=== PATIENT | male | born 1945 | race Caucasian/White ===

== ENCOUNTER 2017-11-09 06:45 | Day surgery (SDC) | payer MEDICARE, OTHER ==
--- NOTE | 2017-11-08 17:50 | Pre-Procedure Note/Attestation ---
Pre-Procedure Note/Attestation Complete Prior to Procedure Planned Procedure: right Procedure Narrative: 1. CATARACT EXTRACTION WITH PHACO AND PC IOL IMPLANTATION, RIGHT EYE. 2. LIMBAL RELAXING INCISION, RIGHT EYE 3.MALYUGIN RING INSERTION, RIGHT EYE FOR FLOPPY IRIS SYNDROME. 4.COMPLEX CATARACT , RIGHT EYE Indications for Procedure Pre-Operative Diagnosis: 1. CATARACT ,RIGHT EYE. 2. ASTIGMATISM, RIGHT EYE. 3. FLOPPY IRIS SYNDROME, RIGHT EYE 4. COMPLEX CATARACT , RIGHT EYE. Attestation I attest that I discussed the nature of the procedure; its benefits; risks and complications; and alternatives (and the risks and benefits of such alternatives ), prior to the procedure, with the patient (or the patient's legal customer retention representative). I attest that, if there was a reasonable possibility of needing a blood transfusion, the patient (or the patient's legal customer retention representative) was given the [facility] standardized written summary, pursuant to the Anthony Terri Blood Safety Act ([place] Health and Safety Code # 1645, as amended). I attest that I re-evaluated the patient just prior to the surgery and that there has been no change in the patient's H&P, except as documented below: AKHIL RANGEL Nov 08, 2017 17:50
[2017-11-09] VITALS (10 sets, daily range): BP systolic 95–117; BP diastolic 56–69
[~2017-11-09] VITALS: Ht 167.6 cm; Wt 78.0 kg
[~2017-11-09 06:45] MED LIST: acetaZOLAMIDE 125mg tab ORAL ONE
[2017-11-09] MEDS ORDERED: Lidocaine 1% MPF 10mg/ml 5ml ONE (07:04)
[2017-11-09] MEDS ORDERED: Dexamethasone 4mg/ml vial ONE (07:04)
[2017-11-09] MEDS ORDERED: BSS 500ml btl ONE (07:04)
[2017-11-09] MEDS ORDERED: EPINEPHrine 1mg/1ml Amp ONE (07:05)
[2017-11-09] MEDS ORDERED: Povidone-Iodine 5% opth solution ONE (07:05)
[2017-11-09] MEDS ORDERED: Sodium Hyaluronate 10 mg/ml 0.85ml ONE (07:05)
[2017-11-09] MEDS ORDERED: Carbachol 0.01% Op Soln 1.5ml vial ONE (07:05)
[2017-11-09] MEDS ORDERED: BSS 15ml BTL ONE (07:05)
[2017-11-09] MEDS ORDERED: Akten 3.5% 1ml Btl ONE (07:07)
[2017-11-09] MEDS ORDERED: Phenylephrine 10% Opth Soln 5ml ONE (07:07)
[2017-11-09] MEDS ORDERED: Vigamox Opth Soln 3ml ONE (07:07)
[2017-11-09] MEDS ORDERED: Ketorolac Tromethamine Opth 5ml Soln ONE (07:07)
[2017-11-09] MEDS ORDERED: Tropicamide 1% Opth 15ml Soln ONE (07:08)
[2017-11-09] MEDS: Ketorolac Tromethamine Opth 5ml Soln RIGHT EYE SCH ×3 (07:32→08:01)
[2017-11-09] MEDS: Tropicamide 1% Opth 15ml Soln RIGHT EYE SCH ×3 (07:33→08:01)
[2017-11-09] MEDS: Akten 3.5% 1ml Btl RIGHT EYE SCH ×3 (07:33→08:01)
[2017-11-09] MEDS: Phenylephrine 10% Opth Soln 5ml RIGHT EYE SCH ×3 (07:33→08:01)
[2017-11-09] MEDS: Vigamox Opth Soln 3ml RIGHT EYE SCH ×3 (07:33→08:02)
[2017-11-09] MEDS ORDERED: XANAX1 MG ORAL (07:45)
[2017-11-09] MEDS ORDERED: COUMADIN2 MG ORAL (07:45)
[2017-11-09] MEDS ORDERED: BLOOD PRESSURE PO (07:45)
[2017-11-09] MEDS ORDERED: ASPIR 8181 MG ORAL (07:45)
[2017-11-09] MEDS ORDERED: Propofol 200mg/20ml IV ONE (08:00)
[2017-11-09] MEDS ORDERED: NS Irrig 1000ml ONE (08:00)
[2017-11-09] MEDS ORDERED: Midazolam 2mg/2ml Inj ONE (08:00)
[2017-11-09] MEDS ORDERED: Sterile Water Irrig 1000ml IRRIG ONE (08:00)
[2017-11-09] MEDS ORDERED: LR 1000ml ONE (08:00)
[2017-11-09 08:19] LABS: BASOPHILS % (AUTO) 1.2 % (0.0-2.0); EOSINOPHILS % (AUTO) 9.2 % (0.0-3.0); LYMPHOCYTES % (AUTO) 31.9 % (20.0-45.0); MEAN CORPUSCULAR HEMOGLOBIN 32.7 PG (27.0-31.0); MEAN CORPUSCULAR HGB CONC 33.5 G/DL (32.0-36.0); MEAN CORPUSCULAR VOLUME 97 FL (80-99); MEAN PLATELET VOLUME 9.5 FL (6.5-10.1); MONOCYTES % (AUTO) 9.1 % (1.0-10.0); NEUTROPHILS % (AUTO) 48.7 % (45.0-75.0); PLATELET COUNT 130 K/UL (150-450); RED BLOOD COUNT 3.96 M/UL (4.70-6.10); RED CELL DISTRIBUTION WIDTH 13.5 % (11.6-14.8); WHITE BLOOD COUNT 6.5 K/UL (4.8-10.8)
[2017-11-09 08:33] LABS: ANION GAP 7 mmol/L (5-15); CALCIUM 8.8 MG/DL (8.5-10.1); CARBON DIOXIDE 28 MMOL/L (21-32); CHLORIDE 106 MMOL/L (98-107); CREATININE 1.8 MG/DL (0.55-1.30); POTASSIUM 3.9 MMOL/L (3.5-5.1); SODIUM 141 MMOL/L (136-145)
[2017-11-09] MEDS ORDERED: LR 1000ml 1,000 ML IVLG SCH (09:07)
--- NOTE | 2017-11-09 09:07 | Anethesia Preoperative Eval ---
Anesthesia Pre-op PMH/ROS General Date of Evaluation: Nov 09, 2017 Time of Evaluation: 08:32 Anesthesiologist: Adri ASA Score: ASA 3 Mallampati Score Class I : Soft palate, uvula, fauces, pillars visible Class II: Soft palate, uvula, fauces visible Class III: Soft palate, base of uvula visible Class IV: Only hard plate visible Mallampati Classification: Class III Surgeon: [place] Diagnosis: R eye cataract Surgical Procedure: R eye catarac extraction Anesthesia History: none Social History: smoking - h/o, drug use - opioids Family History: no anesthesia problems Allergies: Coded Allergies: No Known Allergies (Unverified , 11/08/17) Medications: see eMAR Past Medical History Cardiovascular: Reports: HTN, CAD - s/p CABG, 2 stents in and valve replacement , arrhythmia - chronic AF, Denies: SD, valve dz, other Pulmonary: Denies: asthma, COPD, DARINEL, other Gastrointestinal/Genitourinary: Reports: GERD, CRI, Denies: ESRD, other Neurologic/Psychiatric: Reports: depression/anxiety, Denies: dementia, CVA, TIA, other Endocrine: Denies: DM, hypothyroidism, steroids, other HEENT: Reports: cataract (L), cataract (R), Denies: glaucoma, ANVIK (L), ANVIK (R), other Hematology/Immune: Reports: anemia - mild chronic d-s, Denies: DVT, bleeding disorder, other Musculoskeletal/Integumentary: Reports: DJD, Denies: OA, RA, DDD, edema, other PMH Narrative: As above PSxH Narrative: CABG Anesthesia Pre-op Phys. Exam Physician Exam Last Vital Signs Date Time Temp Pulse Resp B/P (MAP) Pulse Ox O2 Delivery O2 Flow Rate FiO2 11/09/17 07:47 97.7 72 20 117/61 97 Room Air Constitutional: NAD Neurologic: CN 2-12 intact Cardiovascular: RRR, no M/R/G, other - IIR Respiratory: CTA, other Gastrointestinal: S/NT/ND Airway Exam Mallampati Score: Class III MO: limited Neck: stiff ROM: limited Teeth: missing Dentures: upper, lower Anesthesia Pre-op A/P Labs Hematology Test 11/09/17 08:05 White Blood Count 6.5 K/UL (4.8-10.8) Red Blood Count 3.96 M/UL (4.70-6.10) L Hemoglobin 12.9 G/DL (14.2-18.0) L Hematocrit 38.6 % (42.0-52.0) L Mean Corpuscular Volume 97 FL (80-99) Mean Corpuscular Hemoglobin 32.7 PG (27.0-31.0) H Mean Corpuscular Hemoglobin Concent 33.5 G/DL (32.0-36.0) Red Cell Distribution Width 13.5 % (11.6-14.8) Platelet Count 130 K/UL (150-450) L Mean Platelet Volume 9.5 FL (6.5-10.1) Neutrophils (%) (Auto) 48.7 % (45.0-75.0) Lymphocytes (%) (Auto) 31.9 % (20.0-45.0) Monocytes (%) (Auto) 9.1 % (1.0-10.0) Eosinophils (%) (Auto) 9.2 % (0.0-3.0) H Basophils (%) (Auto) 1.2 % (0.0-2.0) Chemistry Test 11/09/17 08:05 Sodium Level 141 MMOL/L (136-145) Potassium Level 3.9 MMOL/L (3.5-5.1) Chloride Level 106 MMOL/L (98-107) Carbon Dioxide Level 28 MMOL/L (21-32) Anion Gap 7 mmol/L (5-15) Blood Urea Nitrogen 25 mg/dL (7-18) H Creatinine 1.8 MG/DL (0.55-1.30) H Estimat Glomerular Filtration Rate mL/min (>60) Glucose Level 101 MG/DL (74-106) Calcium Level 8.8 MG/DL (8.5-10.1) Studies Pre-op Studies: EKG - AF Risk Assessment & Plan Assessment: ASA 3 Plan: MAC Status Change Before Surgery: EDUARDO Sylvester M.D. Nov 09, 2017 09:07
[2017-11-09] MEDS ORDERED: DiphenhydrAMINE 50mg/ml Inj IVP PRN (09:15)
[2017-11-09] MEDS ORDERED: fentaNYL 100 mcg/2 mL IV PRN (09:15)
--- NOTE | 2017-11-09 09:31 | Immediate Post-Op Evaluation ---
Immediate Post-Op Evalulation Immediate Post-Op Evalulation Procedure: R eye cataract extraction with IOL Date of Evaluation: Nov 09, 2017 Time of Evaluation: 09:30 IV Fluids: 300 Blood Products: none Estimated Blood Loss: none Urinary Output: none Blood Pressure Systolic: 102 Blood Pressure Diastolic: 69 Pulse Rate: 70 Respiratory Rate: 20 O2 Sat by Pulse Oximetry: 99 Temperature (Fahrenheit): 97.6 Pain Score (1-10): 2 Nausea: No Vomiting: No Complications none Patient Status: awake, patent, none Hydration Status: adequate EDUARDO JOYNER M.D. Nov 09, 2017 09:31
--- NOTE | 2017-11-09 09:37 | Discharge Summary ---
Discharge Summary Discharge Summary Discharge Summary DATE OF ADMISSION: 11/09/2017 DATE OF DISCHARGE: 11/09/2017 REASON FOR HOSPITALIZATION: 1- Cataract, right eye 2- Floppy iris syndrome 3- Complex cataract SURGERY PERFORMED: 1- Cataract extraction, right eye 2- Malyugin ring insertion , right eye 3- Complex cataract removal CONDITION IN THE HOSPITAL:The patient tolerated the surgery without complications. DISCHARGE CONDITION: The patient was stable at discharge. DISCHARGE MEDICATIONS: 1. Vigamox eye drops one drop q.i.d, OD 2. Prednisolone one drop q.i.d, OD 3. Acular drop q4h OD POSTOPERATIVE ORDERS: The patient has to rest at home. No bending, No lifting, No watching Television tonight. POSTOPERATIVE FOLLOW UP: The patient will be followed in my office tomorrow morning at 7 o'clock. AKHIL RANGEL Nov 09, 2017 09:37
--- NOTE | 2017-11-09 09:43 | Brief Operative Note ---
Immediate Post Operative Note Operative Note Chief Complaint: Blurry vision, difficulty driving and reading, right eye Pre-op Diagnosis: 1. CATARACT ,RIGHT EYE. 2. ASTIGMATISM, RIGHT EYE. 3. FLOPPY IRIS SYNDROME, RIGHT EYE 4. COMPLEX CATARACT , RIGHT EYE. Procedure: 1- cataract extraction with phaco and PC IOL implantation, right eye 2-Malyugin ring insertion , right eye 3- Complex cataract removal, right eye Surgeon: Akhil Chowdhury MD Director Data Analytics: None Additional Surgeons: None Anesthesiologist: Dr. Rush Anesthesia: MAC Specimen: none Complications: none Condition: stable Fluids: 500ml Estimated Blood Loss: none Drains: none Implant(s) used?: Yes - Monofocal IOl imoplanted in the right eye without complication AKHIL CHOWDHURY Nov 09, 2017 09:43
--- NOTE | 2017-11-09 15:04 | 48 Hour Post Anesthesia Eval ---
Post Anesthesia Evaluation Procedure: R eye cataract extraction with IOL Date of Evaluation: Nov 09, 2017 Time of Evaluation: 12:56 Blood Pressure Systolic: 116 0: 68 Pulse Rate: 64 Respiratory Rate: 20 Temperature (Fahrenheit): 97.6 O2 Sat by Pulse Oximetry: 98 Airway: patent Nausea: No Vomiting: No Pain Intensity: 2 Hydration Status: adequate Cardiopulmonary Status: stable Mental Status/LOC: patient returned to baseline Follow-up Care/Observations: n/a Post-Anesthesia Complications: none Follow-up care needed: ready to discharge EDUARDO JOYNER M.D. Nov 09, 2017 15:04
--- NOTE | 2017-11-10 05:15 | Operative Note - Dictated ---
DATE OF OPERATION: 11/09/2017 NOTE: "INCOMPLETE DICTATION" FACILITY: [facility]. SURGEON: Jose Chowdhury M.D. FISHING ROD TRIMMER: None. ANESTHESIOLOGIST: Elkin Rush M.D. ANESTHESIA: Monitored anesthesia care (MAC). PREOPERATIVE DIAGNOSES: 1. Cataract, right eye. 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 POSTOPERATIVE DIAGNOSES: 1. Cataract, right eye. 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 SURGERY PERFORMED: 1. Cataract extraction with phacoemulsification and posterior chamber intraocular lens implantation in the right eye. 2. Malyugin ring insertion for treatment of floppy iris syndrome. 3. Complex cataract extraction. 4. Limbal relaxing incision (LRI) to treat astigmatism. INDICATION FOR SURGERY: The patient is a 72-year-old gentleman with a history of hypertension, hypercholesterolemia, and coronary artery disease. The patient is taking Diovan, simvastatin, and medication for coronary artery disease. The patient is a smoker, but does not drink. The patient is not allergic to any medications. The patient is complaining of blurred vision in the right eye. On examination of the right eye, the cornea is clear. Anterior chamber is clean and quiet, but is shallow. Pupillary reflex is normal. There is 4+ nuclear sclerosis and 2+ cortical cataract. Funduscopy shows normal optic disk, normal macula, and periphery retina is within normal limits. To improve his vision in the right eye, the cataract has to be removed and posterior chamber intraocular lens has to be implanted. INFORMED CONSENT: The nature of the surgery, risks, benefits, alternatives, and potential complications were all explained in detail to the patient. The potential complications including, but not limited to bleeding, infection, posterior capsular rupture, lens subluxation, flat anterior chamber, iris prolapse, uveitis, wound leakage, corneal edema, macular edema, endophthalmitis, retinal detachment, loss of vision, and even loss of the eye were all explained in detail to the patient in his language, Farsi. The patient voiced understanding and accepted all the complications. The alternatives including accommodating lens, multifocal lens, toric lens, and conventional cataract surgery with limbal relaxing incision (LRI) for treatment of astigmatism all were explained to the patient in detail, who voiced understanding. The patient elected to have only conventional cataract surgery with limbal relaxing incision for treatment of astigmatism. Then, he signed the consent form, which is in the chart. DESCRIPTION OF SURGERY AND FINDINGS: Following that, the patient was taken to the operation room in a stable condition. Lidocaine gel, Akten 3.5% were applied to the conjunctiva of the right eye. IV sedation was given by the anesthesiologist, Dr. Rush. After adequate anesthesia and sedation had been achieved, the right eye was prepped and draped in the sterile fashion for intraocular surgery. Following that, a speculum was placed in the right eye. Before the patient was taken to the operation room, the cornea was marked at 180 and 90 meridian. In the operation room, using a corneal marker and marking pen, the steep meridian of the cornea was marked. Following that, using a liana knife with 600 blade, two parallel incisions were placed on the steep meridian of the cornea to treat astigmatism. Following that, using a Super Sharp knife, a clear corneal side port was created. A 1% lidocaine without preservative (MPF) was injected into the anterior chamber. Jose Chowdhury M.D. DR: LIZETH JOB#: [id number] CC:
--- NOTE | 2017-11-22 04:00 | Pre-op HX & Phy Repo 2 SIG ---
DATE OF ADMISSION: 11/09/2017 NOTE: POOR AUDIO QUALITY PRESURGICAL INTERNAL MEDICINE HISTORY AND PHYSICAL DATE OF EVALUATION: 11/09/2017 REASON FOR EVALUATION: I was asked by Dr. Jose Chowdhury to see this 72-year-old male, who is going for elective surgery on the right eye. The patient has a cataract in right eye. Please see full description History and Physical by Dr. Jose Chowdhury. The patient was evaluated. Chart was reviewed. PAST MEDICAL HISTORY: Unremarkable for hypertension, chronic atrial fibrillation, renal stones, anxiety, and depression. No history of CVA. No diabetes. No heart attack. No renal failure. No history of GI bleeding or hepatitis. PAST SURGICAL HISTORY: Open heart surgery, valve replacement, and arterial bypass stent. PRESENT MEDICATIONS: Includes Coumadin 2 mg, Xanax, aspirin, and blood pressure medication. ALLERGIES: Allergic to foods, unknown. SOCIAL HISTORY: . Denies alcohol or illicit drug use. FAMILY HISTORY: Not known. REVIEW OF SYSTEMS: Unremarkable for hypertension, chronic atrial fibrillation, renal stones, anxiety, and depression. No history of CVA. No diabetes. No heart attack. No renal failure. No history of GI bleeding or hepatitis. PHYSICAL EXAMINATION: GENERAL: Alert, well-developed, well-nourished male in his 70s. No acute distress. VITAL SIGNS: Blood pressure 117/61, temperature 97.2, pulse 70, respiratory rate 20. SKIN: Dry. Clear. No ulcers. No rashes. LYMPHATIC: Lymph nodes were enlarged. HEENT: Head, normocephalic and atraumatic. Ears, clear. No discharge. Eyes, full description per Dr. Jose Chowdhury. Mouth is clear and moist. No dentures. NECK: No jugular venous distention. Carotids artery +2. Trachea midline. CHEST: No deformity or asymmetry. No rales or rhonchi. HEART: Atrial fibrillation, controlled at the rate of 70. Systolic murmur . ABDOMEN: Soft and benign. No palpable mass. No rebound. EXTREMITIES: No calf tenderness. No edema or varicose veins. GENITOURINARY: No CVA tenderness. No dysuria. NEUROLOGIC: No asymmetry. No tremor. Anxiety and depression. The patient did not eat or drink from last night. LABORATORY AND DIAGNOSTIC DATA: Laboratory work pending. EKG, atrial fibrillation at 73 per minute, right bundle branch block. IMPRESSION: 1. Cataract, right eye. 2. Hypertension, controlled. 3. Chronic atrial fibrillation. 4. Atrial fibrillation. 5. Anxiety and depression. 6. Hyperlipidemia. 7. The patient is on Coumadin. 8. Post open heart surgery for aortic valve replacement. PLAN: Cataract extraction, right eye with intraocular lens implant per Dr. Jose Chowdhury. CONCLUSION: The patient has multiple medical problems including chronic atrial fibrillation, anxiety, depression, and hyperlipidemia. The patient's vital signs are stable. EKG showed chronic atrial fibrillation, controlled beats per minute and right bundle-branch block. The patient's laboratory work is pending. The patient's condition optimized for surgery. Thank you very much, Dr. Chowdhury, for the privilege to participate in the presurgical care of this interesting patient. Toan Wong M.D. DR: ROBERT JOB#: [id number] CC:
== END 2017-11-09 10:50 | disposition home or self-care (01) ==
LOC: SUR 06:45
DX: H26.9 Unspecified cataract (principal); H21.81 Floppy iris syndrome; H52.201 Unspecified astigmatism, right eye; I10 Essential (primary) hypertension; Z95.1 Presence of aortocoronary bypass graft; Z79.82 Long term (current) use of aspirin; I45.10 Unspecified right bundle-branch block; I25.10 Atherosclerotic heart disease of native coronary artery without angina pectoris; F17.200 Nicotine dependence, unspecified, uncomplicated; I49.9 Cardiac arrhythmia, unspecified; M19.90 Unspecified osteoarthritis, unspecified site
CPT/HCPCS: 36415; 65772; 66982; 80048; 85025; 93005; J0171; J1100; J2250; J2704; J7120; V2632; 94003; 94150

== ENCOUNTER 2017-12-14 06:25 | Day surgery (SDC) | payer MEDICARE, OTHER ==
--- NOTE | 2017-12-10 15:39 | Pre-Procedure Note/Attestation ---
Pre-Procedure Note/Attestation Complete Prior to Procedure Planned Procedure: left Procedure Narrative: 1. CATARACT EXTRACTION WITH PHACO AND PC IOL IMPLANTATION, LEFT EYE. 2.MALYUGIN RING INSERTION, LEFT EYE FOR FLOPPY IRIS SYNDROME. 3.COMPLEX CATARACT , LEFT EYE Indications for Procedure Pre-Operative Diagnosis: 1. CATARACT ,LEFT EYE. 2. FLOPPY IRIS SYNDROME,LEFT EYE 3. COMPLEX CATARACT , LEFT EYE. Attestation I attest that I discussed the nature of the procedure; its benefits; risks and complications; and alternatives (and the risks and benefits of such alternatives ), prior to the procedure, with the patient (or the patient's legal cash posting representative). I attest that, if there was a reasonable possibility of needing a blood transfusion, the patient (or the patient's legal cash posting representative) was given the [facility] standardized written summary, pursuant to the Anthony Terri Blood Safety Act ([place] Health and Safety Code # 1645, as amended). I attest that I re-evaluated the patient just prior to the surgery and that there has been no change in the patient's H&P, except as documented below: AKHIL RANGEL Dec 10, 2017 15:39
[2017-12-14] VITALS (9 sets, daily range): BP systolic 109–131; BP diastolic 52–75
[~2017-12-14] VITALS: Ht 167.6 cm; Wt 78.0 kg
[~2017-12-14 06:25] MED LIST changes: +ASPIR 8181 MG ORAL; +BLOOD PRESSURE PO; +COUMADIN2 MG ORAL; +XANAX1 MG ORAL
[2017-12-14] MEDS ORDERED: Propofol 200mg/20ml IV ONE (06:26)
[2017-12-14] MEDS ORDERED: Alfentanil 2ml Inj ONE (06:26)
[2017-12-14] MEDS ORDERED: Flumazenil 0.1mg/ml 5ml Inj IV ONE (06:26)
[2017-12-14] MEDS ORDERED: Midazolam 2mg/2ml Inj ONE (06:26)
[2017-12-14] MEDS ORDERED: NS Irrig 1000ml ONE (06:26)
[2017-12-14] MEDS ORDERED: Sterile Water Irrig 1000ml IRRIG ONE (06:26)
[2017-12-14] MEDS ORDERED: LR 1000ml ONE (06:26)
[2017-12-14] MEDS ORDERED: Povidone-Iodine 5% opth solution ONE (07:02)
[2017-12-14] MEDS ORDERED: Lidocaine 1% MPF 10mg/ml 5ml ONE (07:02)
[2017-12-14] MEDS ORDERED: BSS 500ml btl ONE (07:02)
[2017-12-14] MEDS ORDERED: BSS 15ml BTL ONE (07:02)
[2017-12-14] MEDS ORDERED: Dexamethasone 4mg/ml vial ONE (07:02)
[2017-12-14] MEDS ORDERED: EPINEPHrine 1mg/1ml Amp ONE (07:02)
[2017-12-14] MEDS ORDERED: Sodium Hyaluronate 10 mg/ml 0.85ml ONE ×2 (07:02→10:19)
[2017-12-14] MEDS ORDERED: Phenylephrine 10% Opth Soln 5ml ONE (07:27)
[2017-12-14] MEDS ORDERED: Ketorolac Tromethamine Opth 5ml Soln ONE (07:27)
[2017-12-14] MEDS ORDERED: Akten 3.5% 1ml Btl ONE (07:27)
[2017-12-14] MEDS ORDERED: Tropicamide 1% Opth 15ml Soln ONE (07:27)
[2017-12-14] MEDS ORDERED: Vigamox Opth Soln 3ml ONE (07:27)
[2017-12-14] MEDS: Tropicamide 1% Opth 15ml Soln LEFT EYE SCH ×3 (07:45→07:57)
[2017-12-14] MEDS: Ketorolac Tromethamine Opth 5ml Soln LEFT EYE SCH ×3 (07:45→07:57)
[2017-12-14] MEDS: Akten 3.5% 1ml Btl LEFT EYE SCH ×3 (07:45→07:57)
[2017-12-14] MEDS: Vigamox Opth Soln 3ml LEFT EYE SCH ×3 (07:45→07:57)
[2017-12-14] MEDS: Phenylephrine 10% Opth Soln 5ml LEFT EYE SCH ×3 (07:45→07:57)
[2017-12-14] MEDS ORDERED: ALLOPURINOL100 M1 ORAL (08:11)
[2017-12-14] MEDS ORDERED: EDARBYCLOR 40-1 EAC1 ORAL (08:11)
[2017-12-14] MEDS ORDERED: LR 1000ml 1,000 ML IVLG SCH (08:31)
--- NOTE | 2017-12-14 08:38 | Anethesia Preoperative Eval ---
Anesthesia Pre-op PMH/ROS General Date of Evaluation: Dec 14, 2017 Time of Evaluation: 07:30 Anesthesiologist: Vandana ASA Score: ASA 3 Mallampati Score Class I : Soft palate, uvula, fauces, pillars visible Class II: Soft palate, uvula, fauces visible Class III: Soft palate, base of uvula visible Class IV: Only hard plate visible Mallampati Classification: Class II Surgeon: [place] Diagnosis: Cataract let eye Surgical Procedure: Extraction of cataract with IOL let eye Allergies: Coded Allergies: No Known Allergies (Unverified , 11/08/17) Past Medical History Cardiovascular: Reports: HTN, valve dz - S/p valve replacement, arrhythmia - Afib Pulmonary: Denies: asthma, COPD, DARINEL, other Gastrointestinal/Genitourinary: Denies: GERD, CRI, ESRD, other Neurologic/Psychiatric: Denies: dementia, CVA, depression/anxiety, TIA, other Endocrine: Denies: DM, hypothyroidism, steroids, other HEENT: Reports: cataract (L), cataract (R), Denies: glaucoma, [place] (L), [place] (R), other Hematology/Immune: Denies: anemia, DVT, bleeding disorder, other Musculoskeletal/Integumentary: Denies: OA, RA, DJD, DDD, edema, other PMH Narrative: Valve disease s/p valve replacement, afib, gout PSxH Narrative: Open cardiac valve replacement, cataract Anesthesia Pre-op Phys. Exam Physician Exam Last Vital Signs Date Time Temp Pulse Resp B/P (MAP) Pulse Ox O2 Delivery O2 Flow Rate FiO2 12/14/17 07:52 97.3 95 20 131/52 98 Room Air Constitutional: NAD Neurologic: CN 2-12 intact Cardiovascular: RRR, no M/R/G Respiratory: CTA Gastrointestinal: S/NT/ND Airway Exam Mallampati Score: Class II MO: full ROM: full Teeth: loose Dentures: lower Anesthesia Pre-op A/P Labs WNL Studies Pre-op Studies: EKG - Afib Risk Assessment & Plan Assessment: Class 3 male with h/o afib and open valve replacement here for cataract extraction Plan: MAC, TIVA Status Change Before Surgery: No Pre-Antibiotics Drug: None MALA DEL TORO M.D. Dec 14, 2017 08:38
--- NOTE | 2017-12-14 08:39 | Immediate Post-Op Evaluation ---
Immediate Post-Op Evalulation Immediate Post-Op Evalulation Procedure: Extraction of catarat left eye Date of Evaluation: Dec 14, 2017 Time of Evaluation: 11:46 IV Fluids: 500 Blood Pressure Systolic: 109 Blood Pressure Diastolic: 61 Pulse Rate: 83 Respiratory Rate: 18 O2 Sat by Pulse Oximetry: 96 Temperature (Fahrenheit): 97.5 Pain Score (1-10): 0 Nausea: No Vomiting: No Complications No complication Patient Status: awake, patent, none Hydration Status: adequate Drug: None MALA DEL TORO M.D. Dec 14, 2017 08:39
[2017-12-14] MEDS ORDERED: LR 1000ml 1,000 ML IV SCH (08:45)
[2017-12-14] MEDS ORDERED: fentaNYL 100 mcg/2 mL IV PRN (08:45)
[2017-12-14] MEDS ORDERED: DiphenhydrAMINE 50mg/ml Inj IVP PRN (08:45)
[2017-12-14] MEDS ORDERED: Tetracaine 0.5% Opth 4ml Soln ONE (10:34)
[2017-12-14] MEDS ORDERED: Sodium Hyaluronate 14 mg/ml 0.85ml ONE (10:42)
[2017-12-14] MEDS ORDERED: Triamcinolone 40mg/ml PF Vial ONE (10:45)
[2017-12-14] MEDS ORDERED: Carbachol 0.01% Op Soln 1.5ml vial ONE (10:54)
--- NOTE | 2017-12-14 11:39 | 48 Hour Post Anesthesia Eval ---
Post Anesthesia Evaluation Procedure: Extraction of catarat left eye Date of Evaluation: Dec 14, 2017 Time of Evaluation: 12:00 Blood Pressure Systolic: 120 0: 75 Pulse Rate: 89 Respiratory Rate: 22 O2 Sat by Pulse Oximetry: 97 Airway: patent Nausea: No Vomiting: No Pain Intensity: 1 Hydration Status: adequate Cardiopulmonary Status: Stable Mental Status/LOC: patient returned to baseline Follow-up Care/Observations: As per surgery Post-Anesthesia Complications: No anesthetic complication Follow-up care needed: N/A MALA DEL TORO M.D. Dec 14, 2017 11:39
--- NOTE | 2017-12-14 11:43 | Brief Operative Note ---
Immediate Post Operative Note Operative Note Chief Complaint: Blurry vision, left eye difficulty reading and driving, left eye Pre-op Diagnosis: 1. CATARACT ,LEFT EYE. 2. FLOPPY IRIS SYNDROME,LEFT EYE 3. COMPLEX CATARACT , LEFT EYE. Procedure: 1- Cataract extraction, left eye 2- Limbal relaxing incision, left eye 3- Anterior vitrectomy,left eye Post-op Diagnosis: same as pre-op Surgeon: Akhil Chowdhury MD Heavy Coil Winder: None Additional Surgeons: None Anesthesiologist: Dr. Ross Anesthesia: MAC Specimen: none Complications: none Condition: stable Fluids: 500 ml Estimated Blood Loss: none Drains: none Implant(s) used?: Yes - Monofocal PC IOl implanted in the left eye, with complication vitreous prolaps and vitrectomy, done AKHIL CHOWDHURY Dec 14, 2017 11:43
--- NOTE | 2017-12-14 11:45 | Discharge Summary ---
Discharge Summary Discharge Summary Discharge Summary DATE OF ADMISSION: 2017 DATE OF DISCHARGE:12/14/2017 REASON FOR HOSPITALIZATION: Cataract left eye SURGERY PERFORMED: 1- Cataract extraction left eye 2- anterior vitrectomy 3- LRI CONDITION IN THE HOSPITAL:The patient tolerated the surgery without complications. DISCHARGE CONDITION: The patient was stable at discharge. DISCHARGE MEDICATIONS: 1. Vigamox eye drops one drop q.i.d, OS 2. Prednisolone one drop q.i.d, OS 3. Acular one drop qid left eye POSTOPERATIVE ORDERS: The patient has to rest at home. No bending, No lifting, No watching Television tonight. POSTOPERATIVE FOLLOW UP: The patient will be followed in my office tomorrow morning at 7 o'clock. AKHIL RANGEL Dec 14, 2017 11:45
--- NOTE | 2017-12-15 06:45 | Operative Note - Dictated ---
DATE OF OPERATION: 12/14/2017 FACILITY: [facility]. SURGEON: Jose Chowdhury M.D. COMPUTER GRAPHIC ARTIST: None. ANESTHESIOLOGIST: Anthony Ross M.D. ANESTHESIA: Monitored anesthesia care (MAC). PREOPERATIVE DIAGNOSES: 1. Cataract, left eye. 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 POSTOPERATIVE DIAGNOSES: 1. Cataract, left eye. 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 SURGERY PERFORMED: 1. Cataract extraction with phacoemulsification and posterior chamber intraocular lens implantation in the left eye. 2. Limbal relaxing incision. 3. Anterior vitrectomy. INDICATION FOR SURGERY: The patient is a 72-year-old gentleman with history of hypertension, hypercholesterolemia, and coronary artery disease. The patient is taking Diovan, simvastatin, and medication for coronary artery disease and aspirin. The patient is a smoker, but does not drink. The patient is not allergic to any medications. The patient is complaining of blurry vision in the left eye. He has cataract surgery in the right eye 2 weeks ago and he is happy with the result. On examination of the left eye, the cornea is clear. Anterior chamber is clean and quiet, appeared shallow. Pupillary reflex is normal. There is 4+ nuclear sclerosis and 2+ cortical cataract. Funduscopy shows normal optic disc, normal macula, and periphery retina is within normal limits. To improve his vision in the left eye, the cataract has to be removed and posterior chamber intraocular lens has to be implanted. INFORMED CONSENT: The nature of the surgery, risks, benefits, alternatives, and potential complications were all explained in detail to the patient. The potential complications including, but not limited to bleeding, infection, posterior capsular rupture, lens subluxation, flat anterior chamber, iris prolapse, uveitis, wound leakage, corneal edema, macular edema, endophthalmitis, retinal detachment, loss of vision, and even loss of the eye were all explained in detail to the patient in his language, Farsi. The patient voiced understanding and accepted all the complications. The alternatives including accommodating lenses, multifocal lens, toric lens, and conventional cataract surgery with limbal relaxing incision (LRI) for treatment of astigmatism, all were explained to the patient in detail, who voiced understanding. The patient elected to have only conventional cataract surgery with limbal relaxing incision for astigmatism. Then, he signed the consent form, which is in the chart. DESCRIPTION OF SURGERY AND FINDINGS: Following that, the patient was taken to the operation room in stable condition. Lidocaine gel Akten 3.5% were applied to the conjunctiva of the left eye. IV sedation was given by the anesthesiologist, Dr. Ross. After adequate anesthesia and sedation had been achieved, the left eye was prepped and draped in a sterile fashion for intraocular surgery. Following that, a speculum was placed in the left eye. Before the patient was taken to the operation room, the eye was marked at 180 and 90 meridian. In the operating room, using a corneal marker and a marking pen, the steep meridian of the cornea was marked. Following that, using a liana knife with 600 blade, two parallel incisions were placed in the steep meridian of the cornea for treatment of astigmatism. Following that, using a Super Sharp knife, a clear corneal side port was created. A 1% lidocaine without preservative (MPF) was injected into the anterior chamber. Viscoelastic agent was injected into the anterior chamber. Following that, using a 2.8 mm keratome, temporal clear corneal keratotomy was performed. Viscoelastic agent was injected into the anterior chamber again. Following that, Vision Blue was injected under the viscoelastic agent to stain the anterior capsule. Following that, whole viscoelastic agent was removed from the anterior chamber and a clear viscoelastic agent was injected into the anterior chamber. Under the viscoelastic agent, an anterior capsulotomy was performed in the fashion of capsulorrhexis beautifully. Following that, whole viscoelastic agent was removed from the anterior chamber. Using the BSS, hydrodissection and hydrodelineation was performed and the nucleus was freed, but all of a sudden, the temporal side of the capsulorrhexis was opened and the wound was extended to the periphery. Following that, viscoelastic agent was injected into the anterior chamber again. Using a phacoemulsification machine in the fashion of horizontal chop, the pus was removed from the nucleus but the lens extended to the posterior capsule and vitreous prolapse into the anterior chamber. Therefore, the corneal wound was extended and the pus was removed manually. Anterior vitrectomy was performed. Anterior chamber was cleaned from vitreous body. Possibly a small pus of the nucleus was seen into the vitreous. After filling of the anterior chamber and posterior chamber was filled with viscoelastic agent. Following that, +19.5 diopter [id number] foldable PCIOL with serial number [id number] was injected into the anterior surface. The lens were then fitted in a proper position. The anterior chamber was checked for vitreous. There was no vitreous into the anterior chamber. Following that, the viscoelastic agent was removed from the anterior posterior part of the lens. Following that, the wound was stitched with 10-0 nylon and the knot was buried into the corneal tissue. One of the reasons that the capsular bag rent was created as the patient was moved all of a sudden during the hydrodissection and hydrodelineation because the patient was deeply in a sleep and unconsciously the patient moved his head. At the end of the surgery, Vigamox eye drops were applied to the conjunctiva and gentamicin was injected sub-tenon and Miochol was injected into the anterior chamber to make the pupil miotic. The pupil was round and completely normal. The eye was patched with eye patch and a clear sterile fenestrated shield. Following that, the patient was transferred to the recovery room. In the recovery room, 125 mg of Diamox was given by mouth stat. Postoperative orders and directions were given to the patient. The patient will be discharged home upon stabilization. The patient will be followed in my office tomorrow morning. Jose Chowdhury M.D. DR: LIZETH JOB#: [id number] CC:
== END 2017-12-14 12:45 | disposition home or self-care (01) ==
LOC: SUR 06:25
DX: H25.12 Age-related nuclear cataract, left eye (principal); H25.012 Cortical age-related cataract, left eye; H21.81 Floppy iris syndrome; H43.02 Vitreous prolapse, left eye; I11.0 Hypertensive heart disease with heart failure; E78.00 Pure hypercholesterolemia, unspecified; F17.210 Nicotine dependence, cigarettes, uncomplicated; Z79.82 Long term (current) use of aspirin; Z95.5 Presence of coronary angioplasty implant and graft; I48.91 Unspecified atrial fibrillation
CPT/HCPCS: 65772; 66984; 67005; J0171; J1100; J2250; J2704; J3300; J3490; J7120; V2632; 94003; 94150